=== PATIENT | female | born 1990 | race Caucasian/White ===

== ENCOUNTER → 2019-05-13 | Outpatient (CLI) | payer BC ==
--- NOTE | 2019-05-13 11:44 | US ---
EXAMINATION TYPE: US pelvic complete DATE OF EXAM: 05/13/2019 COMPARISON: NONE CLINICAL HISTORY: N92.0 Excessive and frequent menstruation. Heavy, painful periods x 6 years, gravid a 4, para 3, 1, history of 2 c-sections and tubal ligation. TECHNIQUE: . Transabdominal sonographic images of the pelvis were acquired. Date of LMP: 04/09/2019 EXAM MEASUREMENTS: Uterus: 13.0 x 5.3 x 6.1 cm Endometrial Stripe: 1.1 cm Right Ovary: 3.7 x 3.1 x 3.1 cm Left Ovary: 3.4 x 1.4 x 1.8 cm 1. Uterus: measures enlarged 2. Endometrium: wnl 3. Right Ovary: 2.2 x 1.8 x 1.9cm cystic area presumed prominent follicle. 4. Left Ovary: wnl 5. Bilateral Adnexa: wnl 6. Posterior cul-de-sac: wnl Heterogeneous somewhat prominent uterus. Endometrial stripe measures within normal limits for secreto ry phase of menstrual cycle. No free fluid in pelvis. Both ovaries are normal in size without concern ing adnexal or ovarian mass. IMPRESSION: Slightly prominent heterogeneous uterus otherwise unremarkable study.
[2019-05-13 12:23] LABS: Basophils # (A) 0.1 k/uL (0-0.2); Basophils % (A) 1 %; Eosinophils # (A) 0.6 k/uL (0-0.7); Eosinophils % (A) 7 %; HCT 40.2 % (34.0-46.0); HGB 13.5 gm/dL (11.4-16.0); Lymphocytes # (A) 2.4 k/uL (1.0-4.8); Lymphocytes % (A) 27 %; MCH 27.8 pg (25.0-35.0); MCHC 33.5 g/dL (31.0-37.0); MCV 83.2 fL (80.0-100.0); Mean Platelet Volume 7.9; Monocytes # (A) 0.5 k/uL (0-1.0); Monocytes % (A) 6 %; Neutrophils % (A) 56 %; Platelet Count 283 k/uL (150-450); RBC 4.84 m/uL (3.80-5.40); RDW 14.1 % (11.5-15.5); WBC 8.9 k/uL (3.8-10.6)
[2019-05-13 17:00] LABS: % Iron Saturation 10.55 (12.00-45.00)
[2019-05-13 17:09] LABS: Prolactin 10.2 ng/mL (2.8-29.2)
[2019-05-13 17:11] LABS: Estradiol 42.6 pg/mL; Follicle Stimulating Hormone 4.3 mIU/mL
[2019-05-13 18:25] LABS: Ferritin 12.9 ng/mL (10.0-291.0)
== END | disposition home or self-care (01) ==
LOC: RADUSWWP 10:11
PROVIDERS: ATTEND Obstetrics & Gynecology
DX: N92.0 Excessive and frequent menstruation with regular cycle (principal); D50.0 Iron deficiency anemia secondary to blood loss (chronic); N93.8 Other specified abnormal uterine and vaginal bleeding
CPT/HCPCS: 36415; 76856; 82306; 82670; 82728; 83001; 83002; 83540; 83550; 84144; 84146; 85025

== ENCOUNTER → 2019-09-04 | Outpatient (CLI) | payer BC, OTHER ==
[2019-09-04 12:00] LABS: Basophils # (A) 0.1 k/uL (0-0.2); Basophils % (A) 1 %; Eosinophils # (A) 0.8 k/uL (0-0.7); Eosinophils % (A) 9 %; HCT 43.6 % (34.0-46.0); HGB 14.9 gm/dL (11.4-16.0); Lymphocytes # (A) 2.2 k/uL (1.0-4.8); Lymphocytes % (A) 24 %; MCH 28.9 pg (25.0-35.0); MCHC 34.1 g/dL (31.0-37.0); MCV 84.5 fL (80.0-100.0); Mean Platelet Volume 7.3; Monocytes # (A) 0.4 k/uL (0-1.0); Monocytes % (A) 4 %; Neutrophils # (A) 5.5 k/uL (1.3-7.7); Neutrophils % (A) 61 %; Platelet Count 367 k/uL (150-450); RBC 5.16 m/uL (3.80-5.40); RDW 13.6 % (11.5-15.5); WBC 9.1 k/uL (3.8-10.6)
== END | disposition home or self-care (01) ==
LOC: LABPAT 09:50
PROVIDERS: ATTEND Obstetrics & Gynecology
DX: Z01.818 Encounter for other preprocedural examination (principal)
CPT/HCPCS: 36415; 85025

== ENCOUNTER 2019-09-08 06:03 | Inpatient (IN) | payer BC, OTHER ==
--- NOTE | 2019-08-27 16:58 | P.HPOB ---
History of Present Illness H&P Date: 08/27/19 Chief Complaint: Fibroid uterus and dysfunctional uterine bleeding Masha is a 28-year-old female with heavy menstrual bleeding. She has symptoms that a been present for 6 years since her tubes tied they have continued to progress and worsen to the point where she is unable to function well now due to her bleeding. Ultimately multiple options were discussed and reviewed with her that based on ultrasound showing a 15 week size uterus and large fibroids a decision for total abdominal hysterectomy with salpingectomy possible GARRICK and BSO was decided upon. Risks/benefits/alternatives to this procedure were discussed the patient in detail and did include but were not limited to damage to bladder, bowel, vascular injuries, nerve injuries, bleeding, infection, damage to the ureters possible need for further surgery. On physical exam this is a well-developed well-nourished female whose HEENT is unremarkable. Heart is regular, lungs are clear, extremities without pain. Abdomen soft nontender positive bowel sounds are noted. Pelvic exam reveals a grossly enlarged uterus. Exam Osteopathic Statement: *. No significant issues noted on an osteopathic structural exam other than those noted in the History and Physical/Consult.
[2019-09-02 11:30] VITALS: BMI 32.8
[~2019-09-08 06:03] MED LIST: DEXAMETHASONE SOD PHOSPHATE 10 MG/ML 1 ML VIAL IV ONE; ONDANSETRON 4 MG/2 ML VIAL IVP ONE
[2019-09-08] MEDS ORDERED: ONDANSETRON 4 MG/2 ML VIAL ONE (06:33)
[2019-09-08] MEDS: LACTATED RINGERS 1,000 ML IV SCH ×2 (06:45→20:11)
[2019-09-08] MEDS ORDERED: LIDOCAINE 1% (10MG/ML) FOR IV START INTRADERMA ONE (06:45)
[2019-09-08 06:55] LABS: Glucose,Whole Blood 112 mg/dL (75-99)
[2019-09-08] MEDS: fentaNYL (PF) 50 MCG/ML 2 ML AMP IV ONE ×5 (06:58→10:13)
[2019-09-08] MEDS ORDERED: MIDAZOLAM 2 MG/2 ML VIAL IV ONE (06:58)
[2019-09-08] MEDS ORDERED: HYDROmorphone 0.5 MG/0.5 ML SYRINGE IVP PRN (07:06)
[2019-09-08] MEDS ORDERED: ONDANSETRON 4 MG/2 ML VIAL IVP PRN (07:06)
[2019-09-08] MEDS ORDERED: NALBUPHINE 10 MG/ML (1 ML AMP) IV PRN (07:06)
[2019-09-08] MEDS ORDERED: NALOXONE 0.4 MG/ML 1 ML VIAL IV PRN ×2 (07:06→08:53)
[2019-09-08] MEDS ORDERED: diphenhydrAMINE 50 MG/ML 1 ML VIAL ONE (07:21)
[2019-09-08] MEDS ORDERED: diphenhydrAMINE 50 MG/ML 1 ML VIAL IVP ONE ×2 (07:23→07:32)
[2019-09-08] MEDS ORDERED: LIDOCAINE 1% INJ 10MG/ML (20 ML MDV) ONE (07:36)
[2019-09-08] MEDS ORDERED: fentaNYL (PF) 50 MCG/ML 2 ML AMP ONE (07:36)
[2019-09-08] MEDS ORDERED: MORPHINE SULFATE (PF) 0.3 MG/0.3 ML SYR ONE (07:36)
[2019-09-08] MEDS ORDERED: KETOROLAC 30 MG/ML 1 ML VIAL ONE (07:36)
[2019-09-08] MEDS ORDERED: NALBUPHINE 10 MG/ML (1 ML AMP) ONE (07:36)
[2019-09-08] MEDS ORDERED: ROCURONIUM BROMIDE 10 MG/ML 5 ML VIAL IV ONE (07:36)
[2019-09-08] MEDS ORDERED: MIDAZOLAM 2 MG/2 ML VIAL ONE (07:36)
[2019-09-08] MEDS ORDERED: PROPOFOL 10 MG/ML 20 ML VIAL IV ONE (07:36)
[2019-09-08] MEDS ORDERED: LACTATED RINGERS 1,000 ML IV ONE ×2 (08:28)
--- NOTE | 2019-09-08 08:59 | P.OP ---
Date of Procedure: 09/08/19 Preoperative Diagnosis: Dysfunctional bleeding with fibroid uterus Postoperative Diagnosis: Same Procedure(s) Performed: Total abdominal hysterectomy with bilateral salpingectomy Anesthesia: VIDAL Surgeon: Dontae Bo Boathouse Keeper #1: Palmer Yeboah Estimated Blood Loss (ml): 100 IV fluids (ml): 1,100 Urine output (ml): 50 Pathology: other (Uterus, cervix, bilateral fallopian tubes) Condition: stable Disposition: floor Operative Findings: Much of the right looking tube head been desiccated with her tube ligation so small piece was all that was able to be removed Description of Procedure: Patient was taken to the operating suite where a general anesthetic was found be adequate. She was prepped and draped in the normal sterile fashion and placed in dorsal supine position. Initially a Pfannenstiel skin incision was made and this incision was then carried through to the underlying layer of the fascia with a second knife. Fascia was then nicked in the midline and this opening was extended laterally with Doran scissors. Superior and inferior aspect of this incision were then grasped tented up and bluntly and sharply dissected off the rectus muscles. Rectus muscles were then divided midline and sharp dissection the peritoneum was done. This opening was then extended superiorly and inferiorly with good visualization of both bowel bladder. Bladder blade was then placed B retractor and bowels packed out of the operative field. Patient was then placed in steep Trendelenburg position. Paige clamps then placed over the adnexa and uterus was elevated. First the right fallopian tube was clamped with a Brandon and then excised and sutured than the left in similar fashion. E's were sent to pathology. He clamps then used to clamp the round ligament/tubal complex bilaterally tissues clamped cut and tied. Once this was accomplished bladder flap was identified and entered with Metzenbaum scissors and the bladder was digitally removed from the uterus and cervix and out of the operative field. Brandon clamps then used to clamp the uterine vasculature bilaterally. Tissues clamped cut and tied and then moving in a stepwise fashion inferiorly along the lateral borders of the uterus the cardinal and uterosacral ligaments were clamped cut and tied until reaching the cervix. He clamps then clamped underneath the cervix and tissues clamped cut and tied and then held uterus was then removed from the operative field. Vaginal cuff was then closed with 0 Vicryl suture in a running fashion. With no bleeding on the pedicles noted and following irrigation of the pelvis instruments were removed along with abdominal packing. Peritoneal layer was then identified and closed in a running fashion with 0 Vicryl suture. Fascial layer was then closed with 0 Vicryl suture. One layer of 3-0 Vicryl was placed in deep subcuticular tissues reapproximate skin and close space. Skin was then closed with chintan. Sponge, lap, needle counts were all correct 2. Patient was then taken to the recovery room in stable and satisfactory condition.
[2019-09-08] MEDS ORDERED: HYDROmorphone PCA 10 MG/50 ML BAG IV PRN (09:00)
[2019-09-08] MEDS: HYDROmorphone 0.5 MG/0.5 ML SYRINGE IVP PRN ×5 (09:04→23:46)
[2019-09-08] MEDS: MIDAZOLAM 2 MG/2 ML VIAL IV PRN ×4 (09:24→10:13)
[2019-09-08] MEDS: KETOROLAC 30 MG/ML 1 ML VIAL IVP PRN ×2 (14:42→21:22)
[2019-09-08] MEDS: diphenhydrAMINE 50 MG/ML 1 ML VIAL IVP PRN ×2 (14:44→21:23)
[2019-09-08] MEDS: SENNOSIDES-DOCUSATE SODIUM 1 EACH TAB PO SCH (20:09)
[2019-09-09] MEDS: HYDROmorphone 0.5 MG/0.5 ML SYRINGE IVP PRN ×6 (05:12→23:51)
[2019-09-09] MEDS: KETOROLAC 30 MG/ML 1 ML VIAL IVP PRN ×4 (05:18→23:52)
[2019-09-09 06:00] LABS: Basophils % (A) 0 %; Eosinophils # (A) 0.1 k/uL (0-0.7); Eosinophils % (A) 1 %; HCT 34.1 % (34.0-46.0); Lymphocytes # (A) 2.7 k/uL (1.0-4.8); Lymphocytes % (A) 20 %; MCH 28.8 pg (25.0-35.0); MCHC 33.9 g/dL (31.0-37.0); MCV 85.1 fL (80.0-100.0); Mean Platelet Volume 7.9; Monocytes # (A) 0.7 k/uL (0-1.0); Monocytes % (A) 5 %; Neutrophils # (A) 10.1 k/uL (1.3-7.7); Neutrophils % (A) 73 %; Platelet Count 282 k/uL (150-450); RBC 4.01 m/uL (3.80-5.40); RDW 13.6 % (11.5-15.5); WBC 13.8 k/uL (3.8-10.6)
[2019-09-09 06:08] LABS: HGB 11.6 gm/dL (11.4-16.0)
--- NOTE | 2019-09-09 06:10 | P.PN ---
Progress Note - Text Progress Note Date: 09/09/19 28-year-old female status post total abdominal hysterectomy with Duramorph spinal postop day #1. Overall patient doing okay. VAS 3 out of 10 in severity along incision. No motor or sensory deficits, no back pain. Overall doing well.
[2019-09-09] MEDS: SENNOSIDES-DOCUSATE SODIUM 1 EACH TAB PO SCH ×2 (08:15→20:52)
--- NOTE | 2019-09-09 08:51 | P.PN ---
Progress Note - Text Progress Note Date: 09/09/19 Masha is seen and evaluated postop day 1. She is ambulating but having significant pain her abdomen. She has not been able to have the Roman catheter removed. I have been very specific in labor that we need to get her up and ambulate as we can remove the Roman catheter and that likely probably help decrease her pain significantly. Is unclear why it was not removed yesterday other than she was having pain and they didn't feel like they can take it out because she was having difficulty ambulating. Her incision is otherwise clean dry and intact. We'll plan continue current care with advancement of diet once she is able to handily have Roman catheter removed. Otherwise her vital signs are stable and afebrile. Heart regular, lungs clear, extremities without pain. Abdomen is otherwise soft with positive bowel sounds noted. Assessment postop day 1. Plan continue care with advancement of diet.
[2019-09-10 00:01] VITALS: RESP 18
[2019-09-10] MEDS: HYDROmorphone 0.5 MG/0.5 ML SYRINGE IVP PRN (04:33)
[2019-09-10] MEDS: LACTATED RINGERS 1,000 ML IV SCH (07:37)
[2019-09-10] MEDS ORDERED: HYDROcodone/APAP 7.5-325MG 1 EACH TAB ONE ×3 (08:03→20:51)
[2019-09-10] MEDS: SENNOSIDES-DOCUSATE SODIUM 1 EACH TAB PO SCH (09:01)
[2019-09-10] MEDS ORDERED: IBUPROFEN 600 MG TAB PO ONE ×3 (10:57→23:28)
--- NOTE | 2019-09-10 15:27 | PN ---
PROGRESS NOTE Neelam is seen and evaluated today, postoperative day number 2. Her pain is still relatively significant, particularly around the incision, but she is now ambulating well and voiding and is passing some flatus. She has not had a bowel movement at this time. We will plan to get her an abdominal binder and continue encouraging ambulation, as this will likely help start moving the gas and start making her abdomen feel better. Will try and advance the diet as well and make small changes to her overall care. Her vital signs are otherwise stable and she is afebrile. Heart is regular, lungs clear, extremities without pain. Abdomen is soft with bowel sounds noted. There is no significant swelling of her abdomen, and her incision is otherwise clean, dry and intact. ASSESSMENT: Postoperative day number 2. PLAN: Continue care with advancement of diet and increase ambulation. MMODL / IJN: [id number] /
[2019-09-11] MEDS: SENNOSIDES-DOCUSATE SODIUM 1 EACH TAB PO SCH ×2 (03:06→08:33)
[2019-09-11] MEDS: HYDROcodone/APAP 7.5-325MG 1 EACH TAB PO PRN ×2 (05:55→12:46)
[2019-09-11] MEDS: SIMETHICONE 80 MG CHEWABLE PO PRN ×2 (06:52→15:44)
[2019-09-11] MEDS: IBUPROFEN 600 MG TAB PO PRN ×2 (08:33→15:44)
--- NOTE | 2019-09-11 09:56 | P.PN ---
Progress Note - Text Progress Note Date: 09/11/19 Overall states he looks very good. She is ambulating she is voiding and she is passing gas. She is not have bowel. She has no distention at all today. Most of the difficulty red now is motivation it appears she is not motivated o'clock as it does hurt and so I think that slowing her progress down. We had a discussion we need to get her up and around more so we can try and get her home later today. Vital signs are otherwise stable she is afebrile her heart is regular, lungs are clear, extremities without pain, abdomen is soft and her incision is clean dry and intact. If were able to get her home today we'll plan discharge and removal of chintan prior to discharge. Dictations were forwarded to the pharmacy [facility] that she has something to take for pain. All the questions are answered for her at this time and I will return this afternoon/this evening to finalize discharge plans.
--- NOTE | 2019-09-11 16:50 | P.DS ---
Providers Date of admission: 09/08/19 06:03 Expected date of discharge: 09/11/19 Attending physician: Dontae Bo Primary care physician: [facility] Course: Overall states he is doing very well. She does have incisional pain but otherwise she is ambulating, voiding and tolerating her diet. She is passing flatus much better now and at this time plan discharged home. Her vital vital signs are stable and afebrile. Heart regular, lungs clear, extremities without pain. Abdomen soft and her incision is clean dry and intact. We'll plan to remove chintan and apply Steri-Strips. Prescription for Motrin and Entriken been provided and all the questions and discharge instructions thoroughly reviewed. She'll follow me in 1 week for incision check. Patient Condition at Discharge: Good Plan - Discharge Summary Discharge Rx Participant: Yes New Discharge Prescriptions: New Ibuprofen [Motrin] 600 mg PO Q6HR PRN #30 tab PRN Reason: Pain HYDROcodone/APAP 5-325MG [Entriken 5-325] 1 tab PO Q4HR PRN #30 tab PRN Reason: Pain No Action metFORMIN HCL 1,000 mg PO BID Iron (Unknown Dose) 2 tab PO DAILY Escitalopram [Lexapro] 10 mg PO DAILY Ascorbic Acid/Ascorbate Sodium [Vitamin C 250 mg Tablet Chew] 250 mg PO DAILY Albuterol Inhaler [Ventolin Hfa Inhaler] 1 puff INHALATION DIRECTED PRN PRN Reason: Shortness Of Breath Discharge Medication List Albuterol Inhaler [Ventolin Hfa Inhaler] 1 puff INHALATION DIRECTED PRN 09/02/19 [History] Ascorbic Acid/Ascorbate Sodium [Vitamin C 250 mg Tablet Chew] 250 mg PO DAILY 09/02/19 [History] Escitalopram [Lexapro] 10 mg PO DAILY 09/02/19 [History] Iron (Unknown Dose) 2 tab PO DAILY 09/02/19 [History] metFORMIN HCL 1,000 mg PO BID 09/02/19 [History] HYDROcodone/APAP 5-325MG [Entriken 5-325] 1 tab PO Q4HR PRN #30 tab 09/11/19 [Rx] Ibuprofen [Motrin] 600 mg PO Q6HR PRN #30 tab 09/11/19 [Rx]
[2019-09-12 04:35] VITALS: BP 111/80; PULSE 84; TEMP 98.1
== END 2019-09-11 17:40 | disposition home or self-care (01) | DRG 743 ==
LOC: 2ORMAIN 06:03 → 6PED 10:05
PROVIDERS: ADMIT Obstetrics & Gynecology; ATTEND Obstetrics & Gynecology
PROC: 0UT90ZZ Resection of Uterus, Open Approach (ICD-10-PCS; 2019-09-08)
PROC: 0UT70ZZ Resection of Bilateral Fallopian Tubes, Open Approach (ICD-10-PCS; principal; 2019-09-08 07:30)
DX: D25.9 Leiomyoma of uterus, unspecified (principal); N93.8 Other specified abnormal uterine and vaginal bleeding; N92.0 Excessive and frequent menstruation with regular cycle; Z79.84 Long term (current) use of oral hypoglycemic drugs; Z79.899 Other long term (current) drug therapy
CPT/HCPCS: 81025; 85025; 86850; 86900; 86901; 88307

== ENCOUNTER 2022-06-02 05:41 | Day surgery (SDC) | payer OTHER ==
[2022-05-30 15:12] VITALS: BMI 35.7
[2022-06-02] MEDS ORDERED: LACTATED RINGERS 1,000 ML IV SCH (05:54)
[2022-06-02] MEDS ORDERED: LIDOCAINE 1% (10MG/ML) FOR IV START INTRADERMA PRN (05:54)
[2022-06-02 05:59] VITALS: TEMP 97.7
[2022-06-02 06:10] LABS: Glucose,Whole Blood 104 mg/dL (70-110)
[2022-06-02] MEDS ORDERED: PROPOFOL 10 MG/ML 20 ML VIAL IV ONE (06:36)
[2022-06-02] MEDS ORDERED: LIDOCAINE 2% INJ 20 MG/ML (2 ML VIAL) ONE (06:36)
--- NOTE | 2022-06-02 06:54 | P.PCN ---
Date of Procedure: 06/02/22 Procedure(s) Performed: Brief history: Patient is a pleasant 31-year-old white female scheduled for an elective upper endoscopy as well as colonoscopy as a part of evaluation of abdominal pain, abdominal bloating, intermittent nausea and change in bowel habits for the last 2 months duration Procedure performed: Esophagogastroduodenoscopy with biopsy Colonoscopy Preoperative diagnosis: Abdominal pain/abdominal bloating Change in bowel habits Anesthesia: MAC Procedure: After informed consent was obtained from the patient was brought into the endoscopy unit and IV sedation was administered by anesthesia under continuous monitoring. Initially upper endoscopy was done. The Olympus GF 160 video en doscope was inserted inserted into the mouth and esophagus intubated without any difficulty and was gradually advanced into the stomach and duodenum and carefully examined. The bulb and second part of the duodenum appeared normal. The scope was then withdrawn into the stomach adequately insufflated with air and upon careful examination the antrum had mild gastritis and biopsies were done from this area. Multiple small gastric polyps noted in the body the stomach which were biopsied. Rest of the body, cardia and fundus appeared normal. The scope was then withdrawn into the esophagus. The GE junction was located at 40 cm to the incisors. It appeared regular with no erythema erosions or ulcerations. Rest of the esophagus appeared normal. Patient tolerated the procedure well. At this time the patient continued to remain sedation. Initial digital rectal examination was normal. Olympus CF 160 video colonoscope was then inserted into the rectum and gradually advanced to the cecum without any difficulty. Careful examination was performed as the scope was gradually being withdrawn. The prep was excellent. The cecum, ascending colon, transverse colon, descending colon, sigmoid colon and rectum appeared normal. Retroflexion was performed in the rectum and no lesions were noted. Patient tolerated the procedure well. Impression: 1. Upper endoscopy revealed mild antral gastritis and multiple small gastric polyps 2. Colonoscopy was within normal limits with no evidence of colorectal neoplasia Recommendations: Findings of this examination were discussed with the patient as well as her family. She was advised to follow with the biopsy results. She will start on MiraLAX 1 daily and continue with a high-fiber diet. He was advised to avoid straining and constipation.. Recommend repeat screening colonoscopy at age 43.
[2022-06-02] MEDS ORDERED: ONDANSETRON 4 MG/2 ML VIAL IVP PRN (07:00)
[2022-06-02 07:19] VITALS: BP 105/74; PULSE 76; RESP 20
== END 2022-06-02 07:48 ==
LOC: ORWHC2ENDO 05:41
PROVIDERS: ATTEND Internal Medicine Gastroenterology
DX: K31.7 Polyp of stomach and duodenum (principal); K29.50 Unspecified chronic gastritis without bleeding; J45.909 Unspecified asthma, uncomplicated; E11.9 Type 2 diabetes mellitus without complications; F41.9 Anxiety disorder, unspecified; F32.A Depression, unspecified; D64.9 Anemia, unspecified; Z79.899 Other long term (current) drug therapy
CPT/HCPCS: 88305; 45378; 43239; J2704; J2001

== ENCOUNTER → 2023-03-15 | Outpatient (CLI) | payer OTHER ==
--- NOTE | 2023-03-15 08:17 | MM ---
Reason for Exam: Clinical finding. Baseline mammogram. Indicated Problems: Lump or thickening of the left side for 2 Week(s). Patient History: Menarche at age 14. First Full-Term at age 19. Hysterectomy at age 29. Hormonal Contraceptives, starting at age 16 for 2 years. Prior Study Comparison: Patient's first Mammogram. No prior studies available for comparison. Tissue Density: There are scattered fibroglandular densities. Findings: Analyzed By CAD. Appears symmetrical. The palpable region marked on the left breast no suspicious mammographic abnormality is evident. No suspicious groups of microcalcifications, spiculated or lobular masses, architectural distortion or other secondary signs of malignancy are mammographically apparent. Overall Assessment: Incomplete: need additional imaging evaluation, BI-RAD 0 Management: Diagnostic Breast Ultrasound of the left breast. A negative mammogram report should not preclude additional follow up of suspicious palpable abnormalities. Patient should continue monthly self breast exam. A clinical breast exam by your physician is recommended on an annual basis and results should be correlated with mammographic findings. Electronically signed and approved by: Andrés Eldridge D.O. Radiologis
--- NOTE | 2023-03-15 08:54 | USB ---
Reason for Exam: Clinical finding. Patient History: Menarche at age 14. First Full-Term at age 19. Hysterectomy at age 29. Hormonal Contraceptives, starting at age 16 for 2 years. Technique: Method: Targeted. Findings: The lateral section of the breast of the left breast, the area of palpable concern of the left breast, the axilla of the left breast and the retroareolar of the left breast were scanned. No solid or cystic masses are identified.. Overall Assessment: Negative, BI-RAD 1 Management: Screening Mammogram of both breasts in 1 year. A clinical breast exam by your physician is recommended on an annual basis and results should be correlated with mammographic findings. This exam should not preclude additional follow-up of suspicious palpable abnormalities. Results were given to the patient verbally at the time of exam. Electronically signed and approved by: Andrés Eldridge D.O. Radiologis
== END | disposition home or self-care (01) ==
LOC: RADMAMWWP 07:47
PROVIDERS: ATTEND Family Medicine
DX: R92.323 Mammographic fibroglandular density, bilateral breasts (principal); N63.20 Unspecified lump in the left breast, unspecified quadrant
CPT/HCPCS: 77062; 77066